=== PATIENT | female | born 1985 ===

== ENCOUNTER 2018-02-18 06:50 | Inpatient (IN) | payer MEDICAID ==
[2018-02-18] MEDS ORDERED: cefOXitin IV 2 gm in Dextrose 2 GM/50 ML BAG IVPB ONE (08:08)
[2018-02-18] MEDS ORDERED: Sodium Citrate/Citric Acid 15 ml Sol PO ONE (08:08)
[2018-02-18 08:20] LABS: SQUAMOUS EPITHIAL 1 /hpf (0-5); URINE BACTERIA RARE (<OCC); URINE BILIRUBIN NEGATIVE (NEGATIVE); URINE BLOOD NEGATIVE (NEGATIVE); URINE CLARITY Clear (Clear); URINE COLOR Yellow (YELLOW); URINE GLUCOSE (UA) NORMAL (Normal); URINE LEUKOCYTE ESTERASE NEG Leu/uL (Negative); URINE PROTEIN NEGATIVE (NEGATIVE); URINE UROBILINOGEN NORMAL mg/dL (0.2-1.0)
--- NOTE | 2018-02-18 08:22 | OBHP ---
Datetime: 02/18/2018 07:30 IP Adm Impression: Term, intrauterine ; No Active Labor; Intact Membranes IP Admit Plan: Admit to unit; Initiate Section protocol Admit Comment, IP Provider: 32 yo with an IUP at 40 weeks and Hx of previous C/S and here f or repeat C/S Pelvic Type - PN: Adequate Extremities - PN: Normal Abdomen - PN: Normal Back - PN: Normal Breast - PN: Not Done Lungs - PN: Normal Heart - PN: Normal Thyroid - PN: Normal Neurologic - PN: Normal HEENT - PN: Normal General - PN: Normal EGA AdmitDate IP: 40.0 Vital Signs Provider: Reviewed; Within Normal Limits IP Chief Complaint: Scheduled Section Genitourinary Exam: Normal DTRs - PN: Normal
[2018-02-18 08:26] LABS: ALBUMIN 3.7 g/dL (3.5-5.0); BLOOD UREA NITROGEN 9 mg/dL (7-17); CALCIUM 8.9 mg/dl (8.6-10.4); GFR NON-AFRICAN AMERICAN > 60
[2018-02-18 08:30] LABS: ALT/SGPT 20 U/L (9-52); AST/SGOT 40 U/L (14-36)
[2018-02-18] MEDS ORDERED: Sodium Citrate/Citric Acid 15 ml Sol ONE (08:38)
[2018-02-18] MEDS ORDERED: cefOXitin IV 2 gm in Saline 2 GM/50 ML BAG IVPB ONE (08:38)
[2018-02-18] MEDS ORDERED: Oxytocin 20 units in LR 2,000 ML IV ONE (08:38)
[2018-02-18 08:42] LABS: BASO % 0.5 % (0.0-2.0); EOS # 0.1 K/uL (0.0-0.7); EOS % 0.9 % (0.0-4.0); HEMOGLOBIN 9.6 g/dL (11.0-16.0); LYMPH # 1.9 K/uL (1.0-4.3); LYMPH % 24.7 % (20.0-40.0); MEAN CELL VOLUME 75.3 fL (81.0-99.0); MEAN CORPUSCULAR HEMOGLOBIN 24.8 pg (27.0-31.0); MEAN CORPUSCULAR HGB CONC 32.9 g/dL (33.0-37.0); MEAN PLATELET VOLUME 9.8 fL (7.2-11.7); MONO # 0.7 K/uL (0.0-0.8); MONO % 8.6 % (0.0-10.0); NEUT # 5.1 K/uL (1.8-7.0); NEUT % 65.3 % (50.0-75.0); NRBC % 0.1 % (0.0-2.0); RBC 3.9 Mil/uL (3.80-5.20); WHITE BLOOD COUNT 7.8 K/uL (4.8-10.8)
[2018-02-18] MEDS ORDERED: Phenylephrine 10 mg/ml Inj ONE (08:53)
[2018-02-18] MEDS ORDERED: Morphine 1 mg/ml preservative-free Inj(Duramorph) ONE (08:53)
--- NOTE | 2018-02-18 09:01 | OBADHP ---
Datetime: 02/18/2018 07:30 Admit Comment, IP Provider: 32 yo with an IUP at 40 weeks and Hx of previous C/S and here f or elective repeat C/S GBS Negative, O+, Varicella Non-Immune and will give give vaccine postpartm tracing reassuring. Irregular contractions PMHx Negative PSHx C/s x 1 Meds: PNV, non-compliant with Fe NKDA Social : Denies x 3 Not on labor Admitted for repeat C/S Procedure, risks and possible complications reviewed and pt verbalized understanding Will proceed Pelvic Type - PN: Adequate Extremities - PN: Normal Abdomen - PN: Normal Back - PN: Normal Breast - PN: Not Done Lungs - PN: Normal Heart - PN: Normal Thyroid - PN: Normal Neurologic - PN: Normal HEENT - PN: Normal General - PN: Normal FHR - Baseline A Provider: 120 Membranes, Provider: Intact Contraction Comments Provider: Irregular IP Hx Assessment: Care records reviewed and WNL Vital Signs Provider: Reviewed; Within Normal Limits IP Chief Complaint: Scheduled Section NICHD Variability Prov Fetus A: Moderate 6-25bpm NICHD Accel Fetus A IP Provider: 10X10 FHR Category Provider Fetus A: Category I NICHD Decel Fetus A IP Provider: None Dilatation, Provider: 0 Effacement, Provider: 50 Station, Provider: -3 Genitourinary Exam: Normal DTRs - PN: Normal EGA AdmitDate IP: 40.0 IP Adm Impression: Term, intrauterine ; No Active Labor; Intact Membranes IP Admit Plan: Admit to unit; Initiate Section protocol
[2018-02-18] MEDS ORDERED: Lactated Ringer's 1,000 ML IV ONE (10:21)
[2018-02-18] MEDS ORDERED: Oxycodone/Acetaminophen 5/325 mg Tab PO PRN (10:21)
--- NOTE | 2018-02-18 11:12 | OBDS ---
DELIVERY PERSONNEL Delivery Doctor: DR Victor Hugo Quispe Nurse: Brie Castillo Nanny/Household Manager: Volodymyr Al RN Anesthesiologist: Dr. Campos MATERNAL INFORMATION Delivery Anesthesia: Spinal Medications in Delivery: pitocin 20 Estimated Blood Loss (ml): 500 Placenta Cultured: Yes Maternal Complications: None; Other Other Maternal Complications: anemia Provider Comments: Repeat LTC C/S with delivery of a viable male from [place] position. Apgars 9 _9. BW 6lbss, 5oz or 2860 grams Placenta, cord blood and cord pH sent EBL 600 mls Peds present Pt and tolerated the procedure well and remained in OR room in S_S condition. LABOR SUMMARY EDC: 02/18/2018 00:00 No. Babies in Womb: 1 Attempted: No Labor Anesthesia: None LABOR INFORMATION Reason for Induction: Not Applicable Oxytocin: N/A Group B Beta Strep: Done, Result Unknown Antibiotics # of Doses: 1 Antibiotics Time of Last Dose: 830 Steroids Given: None Reason Steroids Not Administered: Not Applicable MEMBRANES Membranes Rupture Method: Artificial Rupture of Membranes: 02/18/2018 09:28 Length of Rupture (hrs): 0.00 Amniotic Fluid Color: Clear Amniotic Fluid Amount: Moderate Amniotic Fluid Odor: Normal STAGES OF LABOR Stage 3 hrs: 0 Stage 3 min: 1 CSECTION DELIVERY Primary Indication: Repeat Elective Secondary Indication: N/A CSection Urgency: Elective CSection Incidence: Repeat Labor: No Labor Elective: Elective CSection Incision: Lower Uterine Transverse BABY A INFORMATION Infant Delivery Date/Time: 02/18/2018 09:28 Method of Delivery: Born in Route : No : N/A Forceps: N/A Vacuum Extraction: N/A Shoulder Dystocia : No SHOULDER DYSTOCIA BABY A Infant Delivery Date/Time: 02/18/2018 09:28 PRESENTATION/POSITION BABY A Presentation: Cephalic Cephalic Presentation: Vertex PLACENTA INFORMATION BABY A Placenta Delivery Time : 02/18/2018 09:29 Placenta Method of Delivery: Expressed Placenta Status: Delivered SCORES BABY A Heart Rate 1 min: >100 bpm Resp Effort 1 min: Good Cry Reflex Irritability 1 min: Cough or Sneeze or Pulls Away Muscle Tone 1 min: Active Motion Color 1 min: Body [place], Extremities Blue SCORE 1 MIN: 9 Heart Rate 5 min: >100 bpm Resp Effort 5 min: Good Cry Reflex Irritability 5 min: Cough or Sneeze or Pulls Away Muscle Tone 5 min: Active Motion Color 5 min: Body [place], Extremities Blue SCORE 5 MIN: 9 INFANT INFORMATION BABY A Gestational Age at Delivery: 40.0 Gestational Status: Term Infant Outcome : Liveborn Condition : Stable Infant Sex: Male IDENTIFICATION/MEDS BABY A ID Band Number: [id number] ID Band Location: Left Leg; Left Arm Sensor Applied: Yes Sensor Number: [id number] Sensor Location : Cord Clamp WEIGHT/LENGTH BABY A Birthweight (gms): 2860 Infant Weight (lb): 6 Infant Weight (oz): 5 Length Inches: 19.50 Length cms: 49.5 CORD INFORMATION BABY A Nuchal Cord : Around Neck x1, Loose Cord Blood Taken: No Infant Suction: Mouth; Nose ASSESSMENT BABY A Complications: None Physical Findings at Delivery: Within Normal Limits Physical Findings Other: hemangio in left ear Infant Respirations: Appears Normal Horse Farm Manager/ALS Called : No Infant Care By: dr diaz Transferred To: Remains with Mother
[2018-02-19] MEDS: Oxycodone/Acetaminophen 5/325 mg Tab PO PRN ×2 (05:52→15:19)
[2018-02-19 08:21] LABS: HEMOGLOBIN 9.6 g/dL (11.0-16.0); MEAN CORPUSCULAR HEMOGLOBIN 24.8 pg (27.0-31.0); MEAN CORPUSCULAR HGB CONC 32.6 g/dL (33.0-37.0); MEAN PLATELET VOLUME 9.6 fL (7.2-11.7); RBC 3.85 Mil/uL (3.80-5.20); RED CELL DISTRIBUTION WIDTH 19.3 % (11.5-14.5); WHITE BLOOD COUNT 8.8 K/uL (4.8-10.8)
[2018-02-19] MEDS: Prenatal Multivit/Folic Acid/Iron Tab PO SCH (09:20)
--- NOTE | 2018-02-19 20:49 | OBPPN ---
Datetime: 02/19/2018 20:45 PP Pain Prov: Within normal limits PP Nausea Prov: Denies PP Flatus Prov: No PP BM Prov: No PP Breasts Prov: Not Done PP Heart Prov: Normal PP Lungs Prov: Normal PP Abdomen/Uterus Prov: Normal PP Lochia Prov: Normal PP Vulva/Perineum Prov: Normal PP CVA Tenderness Prov: Normal PP Extremities Prov: Normal PP C/S Incision Prov: Normal PP Progress Prov: Not Applicable PP Comments Phys Exam Prov: POD # 1 S/P Repeat C/S Stable and Satisfactory condition and recovery Not despite adequate counseling Drinks little to no water Encourage po water intake and ambulation in hallways Advance care PP Impression Prov: Normal progression PP Plan Prov: Continue present management PP Progress Note Prov: POD # 1 S/P Repeat C/S Stable and Satisfactory condition and recovery Not despite adequate counseling Drinks little to no water Encourage po water intake and ambulation in hallways Advance care IP PP Procedures: None Vital Signs Provider PP: Reviewed Vital Signs Provider Details PP: Incision clean, dry and intact
[2018-02-20] MEDS: Oxycodone/Acetaminophen 5/325 mg Tab PO PRN (05:32)
[2018-02-20 07:40] LABS: BASO % 0.4 % (0.0-2.0); EOS # 0.2 K/uL (0.0-0.7); EOS % 1.4 % (0.0-4.0); HEMOGLOBIN 9.9 g/dL (11.0-16.0); LYMPH # 1.6 K/uL (1.0-4.3); LYMPH % 13.6 % (20.0-40.0); MEAN CELL VOLUME 76.8 fL (81.0-99.0); MEAN CORPUSCULAR HEMOGLOBIN 24.5 pg (27.0-31.0); MEAN CORPUSCULAR HGB CONC 31.8 g/dL (33.0-37.0); MEAN PLATELET VOLUME 9.5 fL (7.2-11.7); MONO # 0.8 K/uL (0.0-0.8); MONO % 7.1 % (0.0-10.0); NEUT % 77.5 % (50.0-75.0); RBC 4.04 Mil/uL (3.80-5.20); RED CELL DISTRIBUTION WIDTH 19.7 % (11.5-14.5); WHITE BLOOD COUNT 11.7 K/uL (4.8-10.8)
--- NOTE | 2018-02-20 07:42 | OBPPN ---
Datetime: 02/20/2018 07:38 PP Pain Prov: Within normal limits PP Nausea Prov: Denies PP Flatus Prov: Yes PP BM Prov: No PP Breasts Prov: Normal PP Heart Prov: Normal PP Lungs Prov: Normal PP Abdomen/Uterus Prov: Normal PP Lochia Prov: Normal PP Vulva/Perineum Prov: Normal PP CVA Tenderness Prov: Normal PP Extremities Prov: Normal PP C/S Incision Prov: Normal PP Progress Prov: Normal PP Comments Phys Exam Prov: Incisicin c/d/i healing well abd: soft: nt, nd, +BS +[place] Fudus; firm, below leve ouf ubmics minimal lochia non foul smelling PP Impression Prov: Normal progression PP Plan Prov: Continue present management PP Progress Note Prov: pt seen adn examiend rperots pain is controlled. pt ambuating, voidng, passin g flatus, toleratign regualrd iet, bresat feeding. pt denies any sadness or depressin, feer, chills, nause,v omiting, cp, sobl VSS PE see above A/P s/p RLTCS POD #2 doing well requesting dc dc home rto 1 week for incisicon chek and staple removal IP PP Procedures: None Vital Signs Provider PP: Reviewed; Within Normal Limits
--- NOTE | 2018-02-20 07:44 | OBDCSUM ---
Datetime: 02/20/2018 07:41 Discharged to, Provider: Home Follow up at, Provider: [facility] Disch Instr Activity: Normal activity Disch Instr Diet: Regular Discharge Instructions, Provider: Routine instructions given Discharge Diagnosis, Provider: Term Delivered Discharge Time: 02/20/2018 07:41 Follow up in weeks, Provider: 1 week Disch Referrals: None Contraception discussed, Prov: Yes Disch Activity Restrictions: No sexual activity; Nothing in vagina - [place], tampons, douche Discharge Comment, Provider: f/u clinic 1 week for staple removal Contraception after Delivery: Not Planning to Use
[2018-02-20] MEDS: Prenatal Multivit/Folic Acid/Iron Tab PO SCH (10:01)
[2018-02-20 10:04] VITALS: RESP 18
[2018-02-20 15:35] VITALS: BP 115/75; PULSE 82; TEMP 99.8; O2SAT 100
== END 2018-02-20 17:00 | disposition home or self-care (01) | DRG 370 ==
LOC: C.EROB 06:50 → C.4D 08:14 → C.4M 12:01
PROVIDERS: ADMIT Obstetrics & Gynecology; ATTEND Obstetrics & Gynecology
PROC: 10D00Z1 Extraction of Products of Conception, Low, Open Approach (ICD-10-PCS; principal; 2018-02-18)
DX: O34.211 Maternal care for low transverse scar from previous cesarean delivery (principal); O99.02 Anemia complicating childbirth; O69.81X0 Labor and delivery complicated by cord around neck, without compression, not applicable or unspecified; D64.9 Anemia, unspecified; Z3A.40 40 weeks gestation of pregnancy; Z37.0 Single live birth